=== PATIENT | female | born 1970 | race American Indian/Alaskan Native ===

== ENCOUNTER 2017-01-19 12:47 | Emergency (ER) | payer MEDICAID ==
--- NOTE | 2017-01-19 13:10 | Emergency Department Report ---
Chief Complaint: Chest Pain Stated Complaint: CHEST PAIN Time Seen by Provider: 01/19/17 13:05 - HPI History of Present Illness: PT c/o intermittent chest pain x 1 month. pt states the location of the pain varies. - ROS Review of Systems: + fatigue + intermittent dizziness - sob - ext edema - Exam Physical Exam: PT looks well, non toxic, no acute resp distress no focal weakness noted in triage RRR MSE screening note: Focused history and physical exam performed. Due to findings the following was ordered: ekg, xr, labs ED Disposition for MSE Condition: Stable
--- NOTE | 2017-01-19 13:56 | XRay Report ---
CHEST 2 VIEWS INDICATION: Chest pain. COMPARISON: None similar. FINDINGS: PA and lateral chest radiographs demonstrate normal cardiomediastinal silhouette. Clear lungs. Mild thoracic spine degenerative spurring. CONCLUSION: No acute disease in the chest. Thank you for the opportunity to participate in this patient's care.
[2017-01-19 13:58] LABS: Hemoglobin 12.5 gm/dl (10.1-14.3); Mean Corpuscular HGB Conc 34 % (30-34); Mean Corpuscular Hemoglobin 27 pg (28-32); Mean Corpuscular Volume 81 fl (79-97); Platelet Count 291 K/mm3 (140-440); Red Blood Count 4.58 M/mm3 (3.65-5.03); White Blood Count 6.5 K/mm3 (4.5-11.0)
[2017-01-19 14:03] LABS: Red Cell Distribution Width 26.8 % (13.2-15.2)
[2017-01-19 14:12] LABS: Alanine Aminotransferase 9 units/L (7-56); Albumin 4.3 g/dL (3.9-5); Albumin/Globulin Ratio 1.4 %; Alkaline Phosphatase 43 units/L (35-129); Anion Gap 18 mmol/L; Bilirubin,Total < 0.20 mg/dL (0.1-1.2); Blood Urea Nitrogen 5 mg/dL (7-17); Calcium 8.8 mg/dL (8.4-10.2); Carbon Dioxide 25 mmol/L (22-30); Chloride 102.6 mmol/L (98-107); Glucose 94 mg/dL (65-100); Potassium 3.5 mmol/L (3.6-5.0); Sodium 142 mmol/L (137-145); Total Protein 7.4 g/dL (6.3-8.2)
[2017-01-19 14:42] LABS: Basophils % (Manual) 0 % (0.0-1.8); Blastocytes % (Manual) 0 %
[2017-01-19 14:43] LABS: Target Cells Rare
[2017-01-19 14:44] LABS: Diff Status Complete; Elliptocytes Rare; Platelet Estimate Consistent w Auto
[2017-01-19 17:23] VITALS: BP 181/96
--- NOTE | 2017-01-20 15:02 | ED Elopement Review ---
ED Pt Elopement review - Results review Lab results: Laboratory Tests 01/19/17 01/19/17 13:26 13:26 WBC 6.5 RBC 4.58 Hgb 12.5 Hct 37.0 MCV 81 MCH 27 L MCHC 34 RDW 26.8 H Plt Count 291 Add Manual Diff Complete Total Counted 100 Seg Neuts % (Manual) 57.0 Band Neutrophils % 0 Lymphocytes % (Manual) 31.0 Reactive Lymphs % (Man) 1.0 Monocytes % (Manual) 9.0 H Eosinophils % (Manual) 2.0 Basophils % (Manual) 0 Metamyelocytes % 0 Myelocytes % 0 Promyelocytes % 0 Blast Cells % 0 Nucleated RBC % Not Reportable Seg Neutrophils # Man 3.7 Band Neutrophils # 0.0 Lymphocytes # (Manual) 2.0 Abs React Lymphs (Man) 0.1 Monocytes # (Manual) 0.6 Eosinophils # (Manual) 0.1 Basophils # (Manual) 0.0 Metamyelocytes # 0.0 Myelocytes # 0.0 Promyelocytes # 0.0 Blast Cells # 0.0 WBC Morphology Not Reportable Hypersegmented Neuts Not Reportable Hyposegmented Neuts Not Reportable Hypogranular Neuts Not Reportable Smudge Cells Not Reportable Toxic Granulation Not Reportable Toxic Vacuolation Not Reportable Dohle Bodies Not Reportable Pelger-Huet Anomaly Not Reportable Aspen Rods Not Reportable Platelet Estimate Consistent w auto Clumped Platelets Not Reportable Plt Clumps, EDTA Not Reportable Large Platelets Not Reportable Giant Platelets Not Reportable Platelet Satelliting Not Reportable Plt Morphology Comment Not Reportable RBC Morphology Not Reportable Dimorphic RBCs Not Reportable Polychromasia Not Reportable Hypochromasia Not Reportable Poikilocytosis Not Reportable Anisocytosis Not Reportable Microcytosis Not Reportable Macrocytosis Not Reportable Spherocytes Not Reportable Pappenheimer Bodies Not Reportable Sickle Cells Not Reportable Target Cells Rare Tear Drop Cells Not Reportable Ovalocytes Not Reportable Helmet Cells Not Reportable [place] Bodies Not Reportable [place] Rings Not Reportable Yee Cells Not Reportable Bite Cells Rare Crenated Cell Not Reportable Elliptocytes Rare Acanthocytes (Spur) Not Reportable Rouleaux Not Reportable Hemoglobin C Crystals Not Reportable Schistocytes Not Reportable Malaria parasites Not Reportable Gregory Bodies Not Reportable Hem Pathologist Commnt No Sodium 142 Potassium 3.5 L Chloride 102.6 Carbon Dioxide 25 Anion Gap 18 BUN 5 L Creatinine 0.5 L Estimated GFR > 60 BUN/Creatinine Ratio 10.00 Glucose 94 Calcium 8.8 Total Bilirubin < 0.20 AST 14 ALT 9 Alkaline Phosphatase 43 Troponin T < 0.010 Total Protein 7.4 Albumin 4.3 Albumin/Globulin Ratio 1.4 - Call Back decision Pt Call Back Decision: Call pt to return to ED [facility] (chest pain may require inpatient evaluation. EKG reveals T-wave inversions in leads V2, V3 without previous EKGs available for comparison)
== END 2017-01-19 23:08 | disposition left against medical advice (07) ==
LOC: ED 12:47
DX: R07.9 Chest pain, unspecified (principal); R42 Dizziness and giddiness; R53.83 Other fatigue; Z53.21 Procedure and treatment not carried out due to patient leaving prior to being seen by health care provider
CPT/HCPCS: 36415; 71020; 80053; 84484; 85007; 85025; 93005; 93010

== ENCOUNTER 2017-05-22 14:03 | Outpatient (CLI) | payer MEDICAID ==
--- NOTE | 2017-05-22 14:48 | Mammography Report ---
BILATERAL MAMMOGRAM: FINDINGS: There are scattered fibroglandular densities (approximately 25%-50% glandular). No mass, distortion, suspicious calcification, or skin change is seen. No significant change is identified when compared to prior exams back to 2015. CAD was utilized. IMPRESSION: Negative mammogram. There is no mammographic evidence of malignancy. RECOMMENDATION: Follow-up per ACS guidelines. BI-RADS CATEGORY: 1 = Negative ACR BI-RADS MAMMOGRAPHIC CODES: 0 = Needs additional imaging evaluation; 1 = Negative; 2 = Benign; 3 = Probably benign; 4 = Suspicious; 5 = Malignant; 6 = Known biopsy-proven malignancy COMMENT: 1. Dense breast tissue, i.e., adenosis, fibrocystic changes, etc., may obscure an underlying neoplasm. 2. Approximately 10% of cancers are not detected with mammography. 3. A negative mammography report should not delay biopsy if a clinically suspicious mass is present. COMMENT: Patient follow-up letters are generated in [place].
== END 2017-05-22 14:04 | disposition home or self-care (01) ==
LOC: MAMMO 14:03
DX: Z12.31 Encounter for screening mammogram for malignant neoplasm of breast (principal)
CPT/HCPCS: 77067; G0202